=== PATIENT | female | born 1985 | race Caucasian/White ===

== ENCOUNTER → 2019-09-24 15:22 | Outpatient (BNVA) | payer SELFPAY | PROVIDERS: Family Provider Nurse Practitioner; PCP Nurse Practitioner; Visit Provider Otolaryngology | DX: J31.0 Chronic rhinitis (principal); J34.89 Other specified disorders of nose and nasal sinuses | CPT/HCPCS: 96372; 99214; J3301 ==

== ENCOUNTER 2019-10-11 08:05 | Day surgery (SDC) | payer BC, SELFPAY ==
[2019-10-03 10:32] VITALS: BMI 23.3
[2019-10-11] VITALS (7 sets, daily range): BP systolic 97–127; BP diastolic 53–88; PULSE 63–72; RESP 14–20; TEMP 36.3–37.1; O2SAT 98–100
--- NOTE | 2019-10-11 08:53 | PM.OP ---
Operative Report Date of procedure: October 11, 2019 Pre-op Diagnosis: Inreanasal lesion Post-op diagnosis: same Procedure Done: Excision intranasal lesion Pathology: Intranasal lesion Surgeon: Justin Birmingham Anesthesia: General Condition: stable Disposition: PACU Procedure: The patient was taken to the operating room under satisfactory LMA anesthesia the nose was injected and the lesion excised with combination of tenotomy and blunt dissection. Specimen was sent in formalin for histopathologic analysis. The wound was closed with simple interrupted 5-0 Vicryl suture. No complications occurred
--- NOTE | 2019-10-11 08:58 | ANES.PREANES ---
Pre-Anesthetic Assessment Pre-Anesthetic Assessment: Height/Weight: Height 1.59 m Weight 58.967 kg Preop Diagnosis: Inreanasal lesion Proposed Procedure: Operation Date: 10/04/19 08:45 Proposed Procedures p Excision Nasal Mass/Lesion/Intranasal/With Frozen(Not Applicable) - Justin Birmingham MD Operation Date: 10/11/19 09:40 Proposed Procedures p Excision Nasal Mass/Lesion/with Frozen(Not Applicable) - Justin Birmingham MD Familial anesthetic complications: PONV Was Beta Laurie taken within 24 hours: N/A Last intake: Intake Last Liquid Date 10/10/19 Last Liquid Time 21:00 Last Solid Date 10/10/19 Last Solid Time 21:00 Social: Social History: No alcohol and No tobacco Exam: Pre-Anes Outpt Exam: alert, oriented x 3, clear to auscultation bilaterally and regular rate & rhythm Airway: Cervical ROM: WNL MP: 2 Dentition: Full Pulmonary: Pulmonary: URI Comments: cold a couple of weeks ago/allergies - feeling ok now, no coughing anything up no fevers CV/HEM: CV/HEM: None reported : : None reported Hepatic: Hepatic: None reported GI: GI: None reported Metabolic: Metabolic: Hyperlipidemia and None reported Musc/skel: Musc/skel: None reported Neuropsych: Neuropsych: None reported Anesthetic Plan: ASA status: II Anesthesia: General Risk of > 500 ml blood loss (7ml/kg in children): No PFSH Anesthesia PFSH: Social History (Updated 10/03/19 @ 10:27 by Hawa Cobb RN) Smoking and tobacco status: never smoked Alcohol intake: never Substance/Drug Use: never Data Anesthesia Cardiac Studies: No Data to Display
[2019-10-11 09:01] LABS: OR HCG Qualitative Urine Negative (Negative)
[2019-10-11] MEDS: sodium chloride 0.9% 1,000 ML 30 ML IV (09:06)
== END 2019-10-11 10:38 | disposition home or self-care (01) ==
PROVIDERS: Family Provider Nurse Practitioner; PCP Nurse Practitioner; Visit Provider Otolaryngology
PROC: 0HB1XZZ Excision of Face Skin, External Approach (ICD-10-PCS; CPT 30117; principal; 2019-10-11 09:40)
DX: J34.89 Other specified disorders of nose and nasal sinuses (principal); J31.0 Chronic rhinitis; Z82.49 Family history of ischemic heart disease and other diseases of the circulatory system
CPT/HCPCS: 30117; 12345; 81025; 84703; 88304; J2001; J2704; J7030

== ENCOUNTER → 2019-10-25 09:07 | Outpatient (BNVA) | payer BC, SELFPAY | PROVIDERS: Family Provider Nurse Practitioner; PCP Nurse Practitioner; Visit Provider Otolaryngology | DX: Z48.89 Encounter for other specified surgical aftercare (principal); J34.89 Other specified disorders of nose and nasal sinuses; J30.89 Other allergic rhinitis | CPT/HCPCS: 99213; 99214 ==

== ENCOUNTER → 2019-11-04 13:38 | Outpatient (BNVA) | payer BC, SELFPAY | PROVIDERS: Family Provider Nurse Practitioner; PCP Nurse Practitioner; Visit Provider Nurse Practitioner | DX: E78.5 Hyperlipidemia, unspecified (principal); J31.0 Chronic rhinitis; F41.9 Anxiety disorder, unspecified | CPT/HCPCS: 80053; 80061 ==

== ENCOUNTER → 2019-12-02 12:58 | Outpatient (BNVA) | payer BC, SELFPAY | PROVIDERS: Family Provider Nurse Practitioner; PCP Nurse Practitioner; Visit Provider Otolaryngology | DX: H66.92 Otitis media, unspecified, left ear (principal); H72.92 Unspecified perforation of tympanic membrane, left ear | CPT/HCPCS: 69210; 99214 ==

== ENCOUNTER → 2020-01-27 13:23 | Outpatient (BNVA) | payer BC, SELFPAY | PROVIDERS: Family Provider Nurse Practitioner; PCP Nurse Practitioner; Visit Provider Nurse Practitioner | DX: E78.2 Mixed hyperlipidemia (principal); F41.9 Anxiety disorder, unspecified; E78.5 Hyperlipidemia, unspecified | CPT/HCPCS: 80053; 80061 ==

== ENCOUNTER → 2020-05-05 15:44 | Outpatient (BNVA) | payer BC, SELFPAY | PROVIDERS: Family Provider Nurse Practitioner; PCP Nurse Practitioner; Visit Provider Nurse Practitioner | DX: L25.9 Unspecified contact dermatitis, unspecified cause (principal); F41.9 Anxiety disorder, unspecified; E78.5 Hyperlipidemia, unspecified; J31.0 Chronic rhinitis; E78.2 Mixed hyperlipidemia | CPT/HCPCS: 80053; 80061 ==

== ENCOUNTER → 2020-08-18 11:25 | Outpatient (BNVA) | payer SELFPAY | PROVIDERS: Family Provider Nurse Practitioner; PCP Nurse Practitioner; Visit Provider Nurse Practitioner | DX: E78.2 Mixed hyperlipidemia (principal); J30.89 Other allergic rhinitis; F41.9 Anxiety disorder, unspecified | CPT/HCPCS: 80053; 80061 ==

== ENCOUNTER → 2020-11-26 16:01 | Outpatient (BNVA) | payer SELFPAY | PROVIDERS: Family Provider Nurse Practitioner; PCP Nurse Practitioner; Visit Provider Nurse Practitioner | DX: R00.2 Palpitations (principal); E78.2 Mixed hyperlipidemia; F41.9 Anxiety disorder, unspecified; J30.89 Other allergic rhinitis | CPT/HCPCS: 80053; 80061; 84439; 84443; 84481 ==

== ENCOUNTER → 2021-03-23 15:59 | Outpatient (BNVA) | payer SELFPAY | PROVIDERS: Family Provider Nurse Practitioner; PCP Nurse Practitioner; Visit Provider Nurse Practitioner | DX: E78.2 Mixed hyperlipidemia (principal); R00.2 Palpitations; F41.9 Anxiety disorder, unspecified; J30.89 Other allergic rhinitis | CPT/HCPCS: 80053; 80061 ==

== ENCOUNTER → 2021-05-25 10:11 | Outpatient (BNVA) | payer SELFPAY | PROVIDERS: Family Provider Nurse Practitioner; PCP Nurse Practitioner; Visit Provider Nurse Practitioner | DX: Z12.4 Encounter for screening for malignant neoplasm of cervix (principal); E78.2 Mixed hyperlipidemia; F41.9 Anxiety disorder, unspecified; E55.9 Vitamin D deficiency, unspecified | CPT/HCPCS: 80053; 80061; 82306; 84439; 84443; 84481; 85025; 88175 ==

== ENCOUNTER → 2021-08-24 11:43 | Outpatient (BNVA) | payer OTHER, SELFPAY | PROVIDERS: Family Provider Nurse Practitioner; PCP Nurse Practitioner; Visit Provider Nurse Practitioner Family | DX: Z01.89 Encounter for other specified special examinations (principal); R30.0 Dysuria; Z20.822 Contact with and (suspected) exposure to COVID-19; Z11.52 Encounter for screening for COVID-19 | CPT/HCPCS: 87635; 99398 ==

== ENCOUNTER → 2022-02-22 10:43 | Outpatient (BNVA) | payer SELFPAY | PROVIDERS: Family Provider Nurse Practitioner; PCP Nurse Practitioner Family; Visit Provider Dermatology | DX: Z01.89 Encounter for other specified special examinations (principal) ==

== ENCOUNTER → 2022-09-22 16:38 | Outpatient (BNVA) | payer SELFPAY | PROVIDERS: Family Provider Nurse Practitioner; PCP Nurse Practitioner Family; Visit Provider Nurse Practitioner Family | DX: M25.512 Pain in left shoulder (principal) | CPT/HCPCS: 73030 ==

== ENCOUNTER → 2022-09-23 12:51 | Outpatient (BNVA) | payer SELFPAY | PROVIDERS: Family Provider Nurse Practitioner; PCP Nurse Practitioner Family; Visit Provider Nurse Practitioner Family | DX: M25.512 Pain in left shoulder (principal); I10 Essential (primary) hypertension; E78.5 Hyperlipidemia, unspecified; F41.9 Anxiety disorder, unspecified; F32.A Depression, unspecified; R00.2 Palpitations; E78.2 Mixed hyperlipidemia | CPT/HCPCS: 80053; 80061 ==

== ENCOUNTER → 2023-02-21 12:22 | Outpatient (BNVA) | payer SELFPAY | PROVIDERS: Family Provider Nurse Practitioner; PCP Nurse Practitioner Family; Visit Provider Dermatology | DX: Z01.89 Encounter for other specified special examinations (principal) ==

== ENCOUNTER → 2023-03-23 14:45 | Outpatient (BNVA) | payer SELFPAY | PROVIDERS: Family Provider Nurse Practitioner; PCP Nurse Practitioner Family; Visit Provider Nurse Practitioner | DX: Z12.4 Encounter for screening for malignant neoplasm of cervix (principal) | CPT/HCPCS: 88175 ==

== ENCOUNTER → 2023-08-16 11:57 | Outpatient (BNVA) | payer BC, SELFPAY | PROVIDERS: Family Provider Nurse Practitioner; PCP Nurse Practitioner Family; Visit Provider Nurse Practitioner Family | DX: E78.5 Hyperlipidemia, unspecified (principal); F41.9 Anxiety disorder, unspecified; I10 Essential (primary) hypertension; F32.A Depression, unspecified; J32.9 Chronic sinusitis, unspecified; J01.00 Acute maxillary sinusitis, unspecified; H66.91 Otitis media, unspecified, right ear; S46.912A Strain of unspecified muscle, fascia and tendon at shoulder and upper arm level, left arm, initial encounter; J30.2 Other seasonal allergic rhinitis; R00.2 Palpitations; E78.2 Mixed hyperlipidemia; K21.9 Gastro-esophageal reflux disease without esophagitis; G47.00 Insomnia, unspecified; F51.01 Primary insomnia; H65.01 Acute serous otitis media, right ear; J32.2 Chronic ethmoidal sinusitis; F33.0 Major depressive disorder, recurrent, mild | CPT/HCPCS: 80053; 80061; 84443 ==

== ENCOUNTER → 2023-12-05 11:26 | Outpatient (BNVA) | payer MEDICAID, SELFPAY | PROVIDERS: Family Provider Nurse Practitioner; PCP Nurse Practitioner Family; Visit Provider Nurse Practitioner Family | DX: J01.00 Acute maxillary sinusitis, unspecified (principal); I10 Essential (primary) hypertension; E78.2 Mixed hyperlipidemia; F41.9 Anxiety disorder, unspecified; F33.0 Major depressive disorder, recurrent, mild; J30.2 Other seasonal allergic rhinitis; J32.2 Chronic ethmoidal sinusitis; B00.1 Herpesviral vesicular dermatitis; J01.01 Acute recurrent maxillary sinusitis | CPT/HCPCS: 80053; 80061; 85025 ==

== ENCOUNTER → 2024-03-11 09:33 | Outpatient (BNVA) | payer MEDICAID, SELFPAY | PROVIDERS: Family Provider Nurse Practitioner; PCP Nurse Practitioner Family; Visit Provider Nurse Practitioner Family | DX: N92.0 Excessive and frequent menstruation with regular cycle (principal); Z12.4 Encounter for screening for malignant neoplasm of cervix; Z32.00 Encounter for pregnancy test, result unknown | CPT/HCPCS: 80053; 84702; 85025 ==